=== PATIENT | female | born 1940 | race Caucasian/White ===

== ENCOUNTER 2016-07-13 12:57 | Outpatient (CLI) ==
[2015-07-30 21:00] VITALS: BMI 28.3
--- NOTE | 2016-07-15 08:56 | MAMMO ---
EXAM: Bilateral digital screening mammogram History: Screening Comparison: Screening mammogram 07/03/2013. Findings: MLO and CC views of bilateral breasts demonstrate scattered fibroglandular breast parench yma. Stable benign bilateral breast calcifications. There are no dominant masses, no suspicious mi crocalcifications and no architectural distortions Impression: Benign stable mammogram. Recommend followup routine screening mammography in 1 year. BIRADS 2
== END 2016-07-13 12:58 | disposition home or self-care (01) ==
LOC: RAD 12:57
PROVIDERS: ATTEND Family Medicine
DX: Z12.31 Encounter for screening mammogram for malignant neoplasm of breast (principal)

== ENCOUNTER 2016-08-10 11:37 | Outpatient (CLI) ==
[2015-07-30 21:00] VITALS: BMI 28.3
--- NOTE | 2016-08-10 12:47 | DI ---
EXAM: Lumbar radiographs. HISTORY: Low back pain with right leg radiculopathy. COMPARISON: 06/24/2008. CT lumbar spine 10/02/2010 FINDINGS: Five views of the lumbar spine were obtained, including bilateral oblique, frontal, later al and L5 S1 views. The frontal and sagittal alignment of the lumbar spine is grossly within normal limits. Post kyphoplasty changes are noted at L4. There are age indeterminate superior endplate de formities at T12 and L1. Additionally, there is an ill-defined lucency through the endplate of L2. No focal osseous lesions are seen. The disc heights of the lumbar spine are relatively well maintained. There is mild to moderate mult ilevel degenerative change, with intervertebral disc height loss with endplate osteophytosis and fac et arthropathy in the lumbar spine, most notable at the L3-L4, L4-5 and L5 S1 levels. Included views of the abdomen demonstrate no acute abnormalities. IMPRESSION: 1. Age indeterminate superior endplate deformities of T12 and L1. If indicated, consider further c haracterization with MRI. 2. Age indeterminate lucency through the superior endplate of L2. Again, if indicated, consider fu rther characterization MRI. 3. Mild to moderate multilevel degenerative change.
== END 2016-08-10 11:38 | disposition home or self-care (01) ==
LOC: RAD 11:37
PROVIDERS: ATTEND Family Medicine
DX: M54.40 Lumbago with sciatica, unspecified side (principal)